=== PATIENT | female | born 1990 | race Caucasian/White ===

== ENCOUNTER 2018-06-19 07:42 | Outpatient (CLI) | payer MEDICAID ==
[~2018-06-19] VITALS: Ht 165.1 cm; Wt 68.6 kg
[~2018-06-19 07:42] MED LIST: PREN-39 PO
[2018-06-19 07:48] VITALS: Ht 165.1 cm; Wt 68.6 kg
[2018-06-19 07:49] VITALS: BP 109/58; PULSE 58; RESP 18
--- NOTE | 2018-06-19 09:47 | TRIAGE ---
OB Triage Datetime Report Generated by CPN: 06/19/2018 09:47 Datetime: 06/19/2018 09:04 Labor Evaluation Frequency: 0 Monitor Mode: External Pattern: Normal: <= 5 Contractions in 10 Minutes Resting Tone Eldred: Relaxed Contraction Comments: DENIES FEELING ANY UCS Heart Rate FHR Baseline Rate: 125 Monitor Mode: External US Variability: Moderate 6-25 bpm Accelerations: 15X15 Decelerations: None Category: Category I Datetime: 06/19/2018 08:21 Labor Evaluation Frequency: X1 Monitor Mode: External Duration (sec)2399: 50 Quality: Mild Pattern: Normal: <= 5 Contractions in 10 Minutes Resting Tone Eldred: Relaxed Heart Rate FHR Baseline Rate: 130 Monitor Mode: External US Variability: Moderate 6-25 bpm Accelerations: 15X15 Decelerations: None Category: Category I Comments: u/s tech at bedside Datetime: 06/19/2018 07:47 EGA: 36.5 Datetime: 06/19/2018 07:44 Stage of : OB Triage Assessment Type: Triage Maternal Assessment Level of Consciousness: Fully Conscious Maternal Assessment Level of Consciousness: Fully Conscious Headache: Denies Headache: Denies Blurred Vision: No Blurred Vision: No Respiratory Effort: Unlabored; Regular Rhythm; Equal Expansion Nausea/Vomiting: Denies Nausea/Vomiting: Denies RUQ Epigastric Pain: Denies RUQ Epigastric Pain: Denies Lower Extremities Edema: None Degree: None Upper Extremities Edema: None Degree: None Facial Edema: None Facial Edema: None Fall Risk Assessment History of Falling: (0) No Secondary Diagnosis: (0) No Ambulatory Aid: (0) Bedrest/Nurse Assist IV Therapy: (0) No Gait: (0) Normal/Bedrest/Immobile Mental Status: (0) Oriented to Own Ability Fall Score: 0 Fall Risk Score Definition: No Risk: No action required Contraction Comments: DENIES Comments: STATES DFM SINCE 2199 LAST NIGHT Pain Assessment Pain Scale: 5 Pain Presence: Constant Pain Type: Pressure; Ache Pain Goal: 5 Pain Relief Measures: Comfort Measures Pain Assessment Comments: STATES PAIN IS CONSTANT BUT TOLERABLE Datetime: 06/19/2018 07:43 EGA: 36.5 Datetime: 06/19/2018 07:42 Time of Arrival: 06/19/2018 07:33 Arrived By: Ambulatory Arrived From: Home Chief Complaint: DFM SINCE 2199 LAST NIGHT Movement: Decreased Contractions: Denies/Absent Rupture of Membranes: Denies Vaginal Bleeding: None Vaginal Discharge: Denies Recent Sexual Intercouse: Denies Abdominal Trauma: Not Applicable Patient Complaints: Other Additional Patient Complaints: PELVIC PAIN/PRESSURE Time Provider Notified: 06/19/2018 08:42 Provider Notified: SANDRA Initial Plan: BPP/NST
--- NOTE | 2018-06-19 10:16 | PN ---
Triage Information Date/Time Jun 19, 2018 Reason for visit: DFM Weeks of Gestation 36w 5d /Para 2/1 Diabetes: none Hypertention: none Additional information PMHx: none. PSHx: none. Objective Vital Signs Date Temp Pulse Resp B/P (MAP) Pulse Ox O2 O2 Flow FiO2 Time Delivery Rate 06/19/18 98.2 58 18 109/58 Room Air 07:49 (75) Heart Rate: 130's Heart Rate Comments Accels to 160 bpm. No decels. Contractions: None Disposition: Discharge Assessment/Plan A: IUP at 36w 5d. Decreased FM. P: Pt feeling the baby move now. D/C home. Reviewed kick counts and labor precautions. ILANA MACKEY MD Jun 19, 2018 10:16
== END 2018-06-19 09:48 | disposition home or self-care (01) ==
LOC: L-D 07:42 → OBT 07:42
PROVIDERS: ATTEND Obstetrics & Gynecology
DX: O36.8130 Decreased fetal movements, third trimester, not applicable or unspecified (principal); Z3A.36 36 weeks gestation of pregnancy
CPT/HCPCS: 76818; Z7500; G0463